=== PATIENT | female | born 1965 | race Caucasian/White ===

== ENCOUNTER 2020-01-01 08:25 | Inpatient (IN) | payer OTHER ==
[2020-01-01] VITALS (14 sets, daily range): BP systolic 80–99; BP diastolic 51–72
[~2020-01-01] VITALS: Ht 167.6 cm; Wt 90.7 kg
--- NOTE | 2020-01-01 08:25 | NUR ---
RT AT BEDSIDE FOR BIPAP SET UP.
--- NOTE | 2020-01-01 08:28 | NUR ---
SEEN AND EXAMINED BY .
[2020-01-01] MEDS ORDERED: FUROSEMIDE 40 MG/4 ML VIAL IV ONE (08:30)
--- NOTE | 2020-01-01 08:30 | NUR ---
PT IV LINE ESTABLISHED, BLOOD DRAWN AND SENT TO LAB.
[2020-01-01] MEDS ORDERED: FUROSEMIDE 40 MG/4 ML VIAL ONE (08:36)
[2020-01-01 08:38] LABS: BASOPHILS % (AUTO) 0.2 % (0.0-2.0); EOSINOPHILS % (AUTO) 0.1 % (0.0-6.0); HEMATOCRIT 35 % (33-45); HEMOGLOBIN 11.5 g/dL (11.5-14.8); LYMPHOCYTES # (AUTO) 0.7 /CMM (0.8-4.8); LYMPHOCYTES % (AUTO) 13.7 % (20.0-44.0); MEAN CORPUSCULAR HGB CONC 33 g/dl (31.0-36.0); MEAN CORPUSCULAR VOLUME 92 fL (82-100); MONOCYTES # (AUTO) 0.8 /CMM (0.1-1.30); MONOCYTES % (AUTO) 14.5 % (2.0-12.0); NEUTROPHILS # (AUTO) 3.9 /CMM (1.8-8.9); NEUTROPHILS % (AUTO) 71.5 % (43.0-81.0); PLATELET COUNT (AUTO) 156 /CMM (150-450); RED BLOOD CELL COUNT(AUTO) 3.86 MIL/uL (4.0-5.2); WHITE BLOOD COUNT (AUTO) 5.4 K/uL (4.3-11.0)
--- NOTE | 2020-01-01 08:40 | NUR ---
[facility]ED [facility] FOR [facility].
--- NOTE | 2020-01-01 08:41 | NUR ---
RT Pt was brought in by paramedics on CPAP mask in respiratory distress. Pt was placed on BiPAP with noted settings per Dr. Myrick orders. Pt is awake and alert. BiPAP is plugged into red outlet. Addendum: 01/01/20 at 0846 by BONY REDDY RT Amended: Links added.
[2020-01-01 08:47] LABS: CALCIUM, SERUM 9.5 mg/dL (8.5-10.1); CARBON DIOXIDE 25 mmol/L (21-32); CHLORIDE 98 mmol/L (98-107); CREATININE 2.8 mg/dL (0.6-1.3); GLUCOSE 196 mg/dL (74-106); POTASSIUM 5.2 mmol/L (3.5-5.1); SODIUM SERUM 132 mmol/L (136-145); UREA NITROGEN, BLOOD 55 mg/dL (7-18)
[2020-01-01 08:59] LABS: ALANINE AMINOTRANSFERASE 21 U/L (12-78); ALBUMIN 3.8 g/dL (3.4-5.0); ALKALINE PHOSPHATASE 44 U/L (46-116); ASPARTATE AMINOTRANSFERASE 32 U/L (15-37); B-TYPE NATRIURETIC PEPTIDE 13485 PG/ML (0-125); BILIRUBIN,DIRECT 0.3 mg/dL (0.0-0.2); BILIRUBIN,TOTAL 0.7 mg/dL (0.2-1.0); TOTAL PROTEIN, SERUM 6.2 g/dL (6.4-8.2)
--- NOTE | 2020-01-01 09:38 | NUR ---
[facility].
--- NOTE | 2020-01-01 09:42 | NUR ---
Javier MADDOX (Dr. Lockwood) talking to Dr. Myrick.
[2020-01-01] MEDS ORDERED: MYCO500T PO (09:48)
[2020-01-01] MEDS ORDERED: CALC0.253 PO (09:48)
[2020-01-01] MEDS ORDERED: SPIR25TA PO (09:48)
[2020-01-01] MEDS ORDERED: PRAV20TA4 PO (09:48)
[2020-01-01] MEDS ORDERED: DILT180C49 PO (09:48)
[2020-01-01] MEDS ORDERED: CEPH250C PO (09:48)
[2020-01-01] MEDS ORDERED: WARF-68 PO (09:48)
[2020-01-01] MEDS ORDERED: METO25TA20 PO (09:48)
[2020-01-01] MEDS ORDERED: CHOL100040 PO (09:48)
[2020-01-01] MEDS ORDERED: TACR0.5C PO (09:48)
[2020-01-01] MEDS ORDERED: MULT-24 PO (09:48)
[2020-01-01] MEDS ORDERED: PRED2.5T PO (09:48)
[2020-01-01] MEDS ORDERED: FURO20TA4 PO (09:48)
[2020-01-01] MEDS ORDERED: AMIO200T4 PO (09:48)
--- NOTE | 2020-01-01 10:00 | NUR ---
CALLED NURSING SUP FOR ICU BED. GAVE ICU 261.
[2020-01-01] MEDS ORDERED: WARF-58 PO (10:07)
[2020-01-01] MEDS ORDERED: WARF7.5T49 PO (10:07)
[2020-01-01] MEDS ORDERED: TACR1CAP7 PO (10:23)
--- NOTE | 2020-01-01 10:47 | NUR ---
Report given to Renetta jarrett for kayleen.
--- NOTE | 2020-01-01 12:10 | NUR ---
ICU RNOPENING NOTE RECEIVED PATIENT FROM ER, WAS BROUGHT IN VIA GURNEY. PATIENT IS ON BIPAP MACHINE, ABLE TO FOLLOW COMMANDS. A/O X4, VERBAL, ABLE TO PROVIDE HISTORY. IS AT BEDSIDE. BIPAP SETTINGS SET ORDERED BY DR LACY, PT TOLERATING WELL, SATURATING AT 100%. PT PLACED ON TELE MONITOR, A-FIB NOTED WITH HR IN THE 90S. PATIENT SKIN IS INTACT WITH MULTIPLE BRUISES NOTED. B LOWER EDEMA PRESENT. IV ACCESS ON RAC #18, INTACT, PATENT AND FLUSHED WELL. BELONGING LIST FILLED OUT AND PLACED IN THE CHART. PATIENT CHANGED INTO HOSPITAL GOWN AND PLACE IN A CLEAN BED. SAFETY MAINTAINED, CALL LIGHT WITHIN REACH, WILL CONTINUE TO MONITOR.
--- NOTE | 2020-01-01 12:24 | NUR ---
Wheeled patient via gurney accompanied by RN and emt and RT, in no distress, RN at bedside to assume care.
[2020-01-01] MEDS ORDERED: ONDANSETRON HCL/PF 4 MG/2 ML VIAL IVP PRN (12:30)
[2020-01-01] MEDS ORDERED: MAG HYDROX/AL HYDROX/SIMETH 30 ML UDC PO PRN (12:30)
[2020-01-01] MEDS ORDERED: MAGNESIUM HYDROXIDE 30 ML UDC PO PRN (12:30)
[2020-01-01] MEDS ORDERED: Z GUARD REMEDY 2 OZ OINT TP PRN (12:30)
[2020-01-01] MEDS ORDERED: methylPREDNISolone SOD SUCC 40 MG/ML VIAL IV SCH (13:00)
[2020-01-01] MEDS: CHOLECALCIFEROL 1,000 UNIT TABLET (VIT D3) PO SCH (13:00)
[2020-01-01 13:13] LABS: ABG BASE EXCESS -6.5 mmol/L; ABG OXYGEN SATURATION 97.3 % (92.0-98.5); ABG PCO2 55.3 mmHg (35.0-45.0); ABG PH 7.211 (7.350-7.450); ABG PO2 106.1 mmHg (75.0-100.0); AaDO2 406.2 mmHg; COHb 0.7 % (0.5-1.5); MetHb 0.3 % (0.0-1.5); O2Hb 96.3 % (94.0-97.0); SITE, ABG Right Radial
[2020-01-01] MEDS: HYDROCORTISONE SOD SUCCINATE 100 MG/2 ML VIAL IV SCH ×2 (13:27→17:21)
[2020-01-01] MEDS: ALBUTEROL FS 2.5 MG/0.5 ML VIAL.NEB NEB SCH ×3 (13:39→21:29)
--- NOTE | 2020-01-01 14:38 | NUR ---
WAITING ON PHARMACY TO SEND MERREM TO ADMINISTER. DUE AT 1400, CALLED PHARMACY STATED IT IS COMING UP.
[2020-01-01] MEDS: MEROPENEM 500 MG in IV NS 0.9% 50 ML IV SCH (14:51)
[2020-01-01] MEDS: IPRATROPIUM NEB FS 0.5 MG/2.5 ML AMPUL.NEB NEB SCH ×2 (16:43→21:29)
[2020-01-01 16:48] LABS: ABG OXYGEN SATURATION 98.4 % (92.0-98.5); ABG PCO2 43.5 mmHg (35.0-45.0); ABG PH 7.271 (7.350-7.450); ABG PO2 143.5 mmHg (75.0-100.0); AaDO2 308.8 mmHg; COHb 0.2 % (0.5-1.5); MetHb 0.4 % (0.0-1.5); O2Hb 97.8 % (94.0-97.0); SITE, ABG Right Radial; VENT MODE, BG Bipap 25/5 RR18 70%
[2020-01-01] MEDS ORDERED: METOPROLOL TARTRATE 25 MG TABLET PO SCH (17:00)
[2020-01-01] MEDS: MYCOPHENOLATE MOFETIL 250 MG CAPSULE PO SCH (17:21)
[2020-01-01] MEDS: AMIODARONE HCL 200 MG TABLET PO SCH (17:21)
--- NOTE | 2020-01-01 17:30 | NUR ---
RN NOTE HELD METOPROLOL PER MD ORDER DUE TO BP BEING TOO LOW.
[2020-01-01] MEDS ORDERED: TACROLIMUS ANHYDROUS 0.5 MG CAPSULE PO SCH (18:00)
[2020-01-01] MEDS ORDERED: NOREPINEPHRINE 8 MG in IV D5W 500 ML IV PRN (18:30)
--- NOTE | 2020-01-01 18:31 | NUR ---
FACING BASTER NOTE SPOKE WITH PARTS SALES MANAGER SRIDHAR, INFORMED REGARDING PATIENTS LOW BLOOD PRESSURE . WITH ORDERS FOR LEVO ON STANDBY TO KEEP MAP >65 AND TO DC METOPROLOL. NURSE AWARE.
--- NOTE | 2020-01-01 19:35 | NUR ---
RN CLOSING NOTES PATIENT IN STABLE CONDITION, NO ACUTE CHANGES TO PATIENT CONDITION DURING MY SHIFT. ALL PATIENT NEEDS MET. PATIENT REMAINS ON BIPAP WITH SETTINGS SET ORDERED BY DR LACY. ABG RESULTS HAVE SLIGHTLY IMPROVED SINCE FIRST ABG DRAW AND ADJUSTMENTS TO BIPAP. PATIENT TOLERATING BIPAP WELL, O2 SAT AT 100%. PT REMAINS A/O X4, BP IS RUNNING LOW MD AWARE, MD ORDERED A STANDING ORDER FOR NOREPI TO KEEP MAP ABOVE 60. WAS AT BED SIDE MOST OF THE DAY, PATIENT RESTING COMFORTABLY IN BED. ALL PATIENTS NEEDS MET, SAFETY MAINTAINED, ENDORSED TO PIZZA CHEF NURSE TO CONTINUE CARE.
--- NOTE | 2020-01-01 19:45 | NUR ---
ICU/MANUFACTURING APPLICATIONS ENGINEER RECEIVED REPORT FROM DAY NURSE. SEE NURSING FLOWSHEET FOR ASSESSMENT. THERE ARE SOME SKIN ISSUES WHICH ARE ADDRESSED ON THE FLOWSHEET ALONG WITH THE INTERVENTIONS. PT HAS BIPAP ON WITH SATURATION AT 100%. NO ACUTE DISTRESS SEEN AT THIS TIME, PT WAS TURNED AND REPOSITIONED FOR COMFORT AND CARE WILL CONTINUE TO MONITOR THIS PT.
--- NOTE | 2020-01-01 20:10 | NUR ---
ICU/CLIENT DEVELOPMENT CONSULTANT RT HERE TO DO ABG, AWAIT THE RESULTS.
[2020-01-01 20:38] LABS: ABG BASE EXCESS -6.3 mmol/L; ABG OXYGEN SATURATION 98.2 % (92.0-98.5); ABG PCO2 41.3 mmHg (35.0-45.0); ABG PH 7.298 (7.350-7.450); ABG PO2 132.3 mmHg (75.0-100.0); AaDO2 322.4 mmHg; COHb 0.2 % (0.5-1.5); MetHb 0.4 % (0.0-1.5); O2Hb 97.6 % (94.0-97.0); SITE, ABG Right Brachial
--- NOTE | 2020-01-01 21:05 | NUR ---
ICU/PLASTICS WORKER RESULTS OF ABG WERE CALLED TO DR LACY, HE SAID NO CHANGE. PT IS CURRENTLY ON BIPAP WITH SETTINGS OF 25/5, 18, 70%.
--- NOTE | 2020-01-01 21:50 | NUR ---
RT NOTE PT RECEIVED ON BIPAP WITH CURRENT SETTINGS OF 25/5, 18, 70%. PT AWAKE AND RESPONDS TO COMMANDS. ABG DRAWN AND RESULTS REPORTED TO FELIPE CARDONA. TX GIVEN, NO ADVERSE REACTIONS NOTED. MASK SECURED WITH MEPILEX. NO DISTRESS NOTED AT THIS TIME. WILL MONITOR T/O SHIFT. Addendum: 01/01/20 at 2152 by VIKKI ROLAND RT Amended: Links added.
[2020-01-01] MEDS: ATORVASTATIN 10 MG TABLET PO SCH (22:00)
--- NOTE | 2020-01-01 22:10 | NUR ---
ICU/MANAGER ACTION PT VOIDED X 1 VERY LITTLE URINE, PT HAS ORDER FOR DUNBAR, THIS WAS OFFERED AGAIN TO PT. PT REFUSED TILL COMES IN.
[2020-01-02] VITALS (24 sets, daily range): BP systolic 88–128; BP diastolic 41–93
--- NOTE | 2020-01-02 00:20 | NUR ---
ICU/LODGE SALES ASSOCIATE PT VOIDED X 1 VERY LITTLE URINE AGAIN FOR THE SECOND TIME, PT HAS ORDER FOR DUNBAR, THIS WAS OFFERED AGAIN TO PT. PT REFUSED TILL COMES IN. EXPLAINED TO PT THAT IF SHE IS IN PAIN THEN DUNBAR SHOULD BE DONE HOWEVER PT REFUSED.
[2020-01-02] MEDS: MEROPENEM 500 MG in IV NS 0.9% 50 ML IV SCH ×2 (01:50→14:33)
[2020-01-02] MEDS: IV NS 0.9% 250 ML IV PRN (02:43)
--- NOTE | 2020-01-02 03:15 | NUR ---
ICU/SCIENTIFIC DIRECTOR PT VOIDED X 1 VERY LITTLE URINE AGAIN FOR THE THIRD TIME, PT HAS ORDER FOR DUNBAR, THIS WAS OFFERED AGAIN TO PT. PT REFUSED TILL COMES IN. PT HASN'T HAD A BM FOR 4 DAYS, CALL PLACED TO GET A SUPPOSITORY OR EDEMA. WAITING FOR MD TO CALL BACK.
--- NOTE | 2020-01-02 04:30 | NUR ---
ICU/MANAGER TRADE 0345-ORDER OBTAINED FOR FLEETS AND LAXATIVE SUPPOSITORY 0430-BLADDER SCAN DONE SHOWED THAT PT HAS 550 ML OF URINE, CALL PLACED TO MD FOR ORDER FOR DUNBAR.
[2020-01-02 04:44] LABS: BASOPHILS % (AUTO) 0.2 % (0.0-2.0); HEMATOCRIT 30 % (33-45); LYMPHOCYTES # (AUTO) 0.4 /CMM (0.8-4.8); LYMPHOCYTES % (AUTO) 21.2 % (20.0-44.0); MEAN CORPUSCULAR HGB CONC 34 g/dl (31.0-36.0); MEAN CORPUSCULAR VOLUME 89 fL (82-100); MONOCYTES # (AUTO) 0.2 /CMM (0.1-1.30); MONOCYTES % (AUTO) 11.9 % (2.0-12.0); NEUTROPHILS # (AUTO) 1.2 /CMM (1.8-8.9); NEUTROPHILS % (AUTO) 66.7 % (43.0-81.0); PLATELET COUNT (AUTO) 95 /CMM (150-450); RED BLOOD CELL COUNT(AUTO) 3.31 MIL/uL (4.0-5.2)
[2020-01-02 04:55] LABS: CALCIUM, SERUM 9.1 mg/dL (8.5-10.1); CREATININE 3.5 mg/dL (0.6-1.3); MAGNESIUM 1.7 mg/dL (1.8-2.4); PHOSPHORUS 4.3 mg/dL (2.5-4.9); POTASSIUM 5.6 mmol/L (3.5-5.1)
[2020-01-02 05:25] LABS: THYROID STIMULATING HORMONE 2.049 uIU/mL (0.358-3.74); WHITE BLOOD COUNT (AUTO) 1.8 K/uL (4.3-11.0)
[2020-01-02] MEDS ORDERED: NA PHOS,M-B/NA PHOS,DI-BA 1 EA ENEMA RC PRN (05:30)
[2020-01-02] MEDS ORDERED: BISACODYL SUPP (10 MG) 10 MG/SUPP.RECT SUPP.RECT RC PRN (05:30)
--- NOTE | 2020-01-02 06:19 | NUR ---
ICU/MUSIC INDUSTRY INTERN STILL WAITING FOR MD TO CALL BACK FOR DUNBAR ORDER AND NOTIFY ABOUT WBC 1.8
[2020-01-02 06:33] LABS: LYMPHOCYTES % (MANUAL) 20 % (16-48); MONOCYTES % (MANUAL) 8 % (0-11.0); NEUTROPHILS % (MANUAL) 72 (42-76)
--- NOTE | 2020-01-02 07:04 | NUR ---
ICU/PASTRY SOUS CHEF DUNBAR CATH PLACED AND FLEETS ENEMA
--- NOTE | 2020-01-02 07:10 | NUR ---
RN NOTES RECEIVED REPORT FROM ON BED ,A/Ox4, ON BIPAP, TOLERATING CURRENT BIPAP SETTING WELL, NO DISTRESS NOTED, VSS STABLE, ON TELE A.FIB , HR IN 80'S, DUNBAR IS DRINING TO GRAVITY,PT IS NPO AT THIS TIME, SR UP x3, CALL LIGHT WITHIN EASY REACH , BED LOCKED AND IN LOWEST POSITION, PT WAS TURNED AND REPOSITIONED FOR COMFORT AND CARE WILL CONTINUE TO MONITOR CLOSELY,
[2020-01-02] MEDS: IPRATROPIUM NEB FS 0.5 MG/2.5 ML AMPUL.NEB NEB SCH ×4 (07:35→20:54)
[2020-01-02] MEDS: ALBUTEROL FS 2.5 MG/0.5 ML VIAL.NEB NEB SCH ×4 (07:35→20:55)
--- NOTE | 2020-01-02 07:39 | NUR ---
RT NOTE PT REC'D ON BIPAP WITH CURRENT SETTINGS OF 25/5, 18, 70%. PT AWAKE AND RESPONDS TO COMMANDS. ABG DRAWN AND RESULTS REPORTED TO FELIPE CARDONA. TX GIVEN, NO ADVERSE REACTIONS NOTED. MASK SECURED WITH MEPILEX. NO DISTRESS NOTED AT THIS TIME. WILL MONITOR T/O SHIFT. Addendum: 01/02/20 at 0745 by ROSI GUTHRIE RT Amended: Links added.
[2020-01-02 08:22] LABS: ABG BASE EXCESS -5.5 mmol/L; ABG OXYGEN SATURATION 96.7 % (92.0-98.5); ABG PCO2 37.3 mmHg (35.0-45.0); ABG PO2 96.2 mmHg (75.0-100.0); AaDO2 362.8 mmHg; MetHb 0.4 % (0.0-1.5); O2Hb 96.3 % (94.0-97.0); SITE, ABG Right Radial; VENT MODE, BG st 25/5 18 70%
[2020-01-02] MEDS: HYDROCORTISONE SOD SUCCINATE 100 MG/2 ML VIAL IV SCH ×3 (08:33→16:20)
[2020-01-02] MEDS: MYCOPHENOLATE MOFETIL 250 MG CAPSULE PO SCH ×2 (08:34→16:20)
[2020-01-02] MEDS: MULTIVITAMINS,THERAGRAN 1 UDTAB TABLET PO SCH (08:34)
[2020-01-02] MEDS: TACROLIMUS ANHYDROUS 0.5 MG CAPSULE PO SCH ×2 (08:34→20:29)
[2020-01-02] MEDS: CHOLECALCIFEROL 1,000 UNIT TABLET (VIT D3) PO SCH (08:34)
[2020-01-02] MEDS: AMIODARONE HCL 200 MG TABLET PO SCH ×2 (08:35→16:18)
[2020-01-02] MEDS: DILTIAZEM HCL CD 180 MG PO SCH (08:36)
[2020-01-02] MEDS ORDERED: PRAVASTATIN SODIUM 20 MG TABLET PO SCH (09:00)
[2020-01-02] MEDS ORDERED: BUMETANIDE INJ 2 MG in IV NS 0.9% 32 ML IV ONE (09:30)
--- NOTE | 2020-01-02 10:38 | NUR ---
RN NOTES DR SYKES NOTIFIED REGARDING INR AND MAGNESIUM LEVEL THIS AM
--- NOTE | 2020-01-02 11:00 | NUR ---
RN NOTES BLADDER SCAN SHOWED PT HAS 300CC TO 500CC URINE , 40CC URINE OUTPUT NOTED FROM DUNBAR INSERTION . MEI NOTIFED , ORDER RECEIVED TO CHANGE DUNBAR CATHETER. CONTINUE TO MONITOR .
--- NOTE | 2020-01-02 11:45 | NUR ---
RN NOTES DUNBAR CATHETER CHANGED PER DR SYKES ORDER .
[2020-01-02] MEDS: SULFAMETHOXAZOLE/TRIMETHOPRIM 15 ML in IV D5W 250 ML IV SCH (12:34)
[2020-01-02] MEDS ORDERED: WARFARIN SODIUM 5 MG TABLET PO SCH (17:00)
--- NOTE | 2020-01-02 18:00 | NUR ---
RN NOTES PT REFUSED TO TAKE HER PROGRAF AT THIS TIME WANTS TO TAKE IT 12 HOURS FROM THE AM DOSE, WILL ENDORSE TO SHOVEL MECHANIC NURSE FOR CONTINUITY OF CARE .
--- NOTE | 2020-01-02 18:42 | NUR ---
RN NOTES PT STABLE , RESTING WELL, NO DISTRESS NOTED , BETTINA DRINING TO GRAVITY, NO SIGNIFICANT CHANGES NOTED ON THIS SHIFT, WILL ENDORSE TO BOLT CUTTER NURSE FOR CONTINUITY OF CARE.
--- NOTE | 2020-01-02 19:30 | NUR ---
RN NOTES RECEIVED PT WITH BIPAP 25/5 RATE 18 FIO2 70% TOLERATED WELL SATURATION 99%. AOX4 AFIB ON TELE MONITOR. AFEBRILE. VSS. DENIES PAIN OR DISCOMFORT. IV SITE ON RAC G 18 INTACT AND PATENT. ENCOURAGED TO REPOSITION WHILE ON BED. KEPT PT CLEAN AND DRY. CALL LIGHT KEPT WITHIN EASY REACH REMINDED TO USED FOR ASSISTANCE. WILL CONT. TO MONITOR.
[2020-01-02] MEDS: ATORVASTATIN 10 MG TABLET PO SCH (21:03)
[2020-01-03] VITALS (26 sets, daily range): BP systolic 73–115; BP diastolic 33–74
[2020-01-03] MEDS: SULFAMETHOXAZOLE/TRIMETHOPRIM 15 ML in IV D5W 250 ML IV SCH ×2 (00:18→08:00)
--- NOTE | 2020-01-03 00:30 | NUR ---
RN NOTES NOTED THAT IV BACTRIM WAS DUE AT 0000, CALLED DR. JACKSON THAT I SPOKE TO AT BEDSIDE AND HIS CONCERN REGARDING TAKING BACTRIM IV EXPLAINED THAT PT OWN REGIONAL COORDINATOR TOLD HIM SO, AND THAT THE PATIENT SHOULDN'T TAKE THIS MEDS. PER WOOD CUTTER MD ITS OK TO GIVE THE MEDICINE AND THEIR DOCTOR NEEDS TO SPEAK WITH OUR NEPHROLOGY/PMD. MEDICINE WILL ADMINISTERED PER MD.
[2020-01-03] MEDS: MEROPENEM 500 MG in IV NS 0.9% 50 ML IV SCH ×2 (02:09→13:42)
--- NOTE | 2020-01-03 05:47 | NUR ---
RN NOTES CALLED DR. JACKSON REGARDING CRITICAL OF INR 8.36 WITH ORDER TO HOLD COUMADIN TODAY.
--- NOTE | 2020-01-03 07:05 | NUR ---
RN NOTES PATIENT REMAINED COMPLIANT WITH CARE. NO CHANGE OF MENTAL STATUS. TOLERATED BIPAP ORDERED SATURATION >95%. AFEBRILE. VSS. DUNBAR CATH DRAINED WITH YELLOW COLOR URINE. NO SIGNIFICANT CHANGES THROUGHOUT THE SHIFT, KEPT PT CLEAN AND DRY. ALL CONCERNED RELAY TO MD. WILL CONTINUE POC.
[2020-01-03 07:34] LABS: BASOPHILS % (AUTO) 0.2 % (0.0-2.0); HEMATOCRIT 30 % (33-45); HEMOGLOBIN 9.8 g/dL (11.5-14.8); LYMPHOCYTES # (AUTO) 0.3 /CMM (0.8-4.8); LYMPHOCYTES % (AUTO) 10.6 % (20.0-44.0); MEAN CORPUSCULAR HGB CONC 33 g/dl (31.0-36.0); MEAN CORPUSCULAR VOLUME 89 fL (82-100); MONOCYTES # (AUTO) 0.2 /CMM (0.1-1.30); MONOCYTES % (AUTO) 8.2 % (2.0-12.0); NEUTROPHILS # (AUTO) 2.1 /CMM (1.8-8.9); PLATELET COUNT (AUTO) 115 /CMM (150-450); RED BLOOD CELL COUNT(AUTO) 3.32 MIL/uL (4.0-5.2); WHITE BLOOD COUNT (AUTO) 2.5 K/uL (4.3-11.0)
[2020-01-03 07:43] LABS: BILIRUBIN,TOTAL 0.4 mg/dL (0.2-1.0); CALCIUM, SERUM 8.5 mg/dL (8.5-10.1); CREATININE 4.1 mg/dL (0.6-1.3); POTASSIUM 5.1 mmol/L (3.5-5.1); TOTAL PROTEIN, SERUM 5.1 g/dL (6.4-8.2)
[2020-01-03] MEDS: IPRATROPIUM NEB FS 0.5 MG/2.5 ML AMPUL.NEB NEB SCH ×4 (07:45→19:56)
[2020-01-03] MEDS: ALBUTEROL FS 2.5 MG/0.5 ML VIAL.NEB NEB SCH ×4 (07:45→19:56)
--- NOTE | 2020-01-03 08:00 | NUR ---
received pt from restaurant shift leader, a/o x4, A fib controlled, on bipap, sat well, NPO, f/c low output MD is aware, Bactrim is not given pt refused stating that it is nephrotoxic, SURVEYOR INSTRUMENT ASSISTANT Ondina is aware, v/s stable, no pain, pt turns and repositions by herself, at the bedside.
[2020-01-03] MEDS: CHOLECALCIFEROL 1,000 UNIT TABLET (VIT D3) PO SCH (08:40)
[2020-01-03 08:41] LABS: ABG OXYGEN SATURATION 95.7 % (92.0-98.5); ABG PCO2 29.9 mmHg (35.0-45.0); ABG PH 7.395 (7.350-7.450); ABG PO2 81.8 mmHg (75.0-100.0); AaDO2 241.1 mmHg; COHb 0.1 % (0.5-1.5); MetHb 0.2 % (0.0-1.5); O2Hb 95.4 % (94.0-97.0); SITE, ABG Right Brachial; VENT MODE, BG ST 25/5 RR18 50%
[2020-01-03] MEDS: TACROLIMUS ANHYDROUS 0.5 MG CAPSULE PO SCH ×2 (08:41→21:00)
[2020-01-03] MEDS: MYCOPHENOLATE MOFETIL 250 MG CAPSULE PO SCH ×2 (08:41→16:11)
[2020-01-03] MEDS: AMIODARONE HCL 200 MG TABLET PO SCH (08:41)
[2020-01-03] MEDS: HYDROCORTISONE SOD SUCCINATE 100 MG/2 ML VIAL IV SCH ×3 (08:42→16:10)
[2020-01-03] MEDS: DILTIAZEM HCL CD 180 MG PO SCH (08:42)
[2020-01-03] MEDS: MULTIVITAMINS,THERAGRAN 1 UDTAB TABLET PO SCH (08:42)
--- NOTE | 2020-01-03 09:21 | NUR ---
pt is on high flow now 50% on 50L per Dr Ramos.
[2020-01-03] MEDS ORDERED: BUMETANIDE INJ 2 MG in IV NS 0.9% 32 ML IV ONE (10:30)
[2020-01-03] MEDS: METOLAZONE 2.5 MG TABLET PO SCH (10:48)
[2020-01-03 13:34] LABS: ABG BASE EXCESS -6.6 mmol/L; ABG OXYGEN SATURATION 92.3 % (92.0-98.5); ABG PCO2 26.7 mmHg (35.0-45.0); ABG PH 7.415 (7.350-7.450); ABG PO2 61.7 mmHg (75.0-100.0); AaDO2 264.8 mmHg; COHb 0.1 % (0.5-1.5); MetHb 0.3 % (0.0-1.5); O2Hb 91.9 % (94.0-97.0); VENT MODE, BG HIGH FLOW
[2020-01-03] MEDS: OSELTAMIVIR PHOSPHATE 75 MG CAPSULE PO SCH (16:08)
--- NOTE | 2020-01-03 16:55 | NUR ---
pt is resting in the bed, a/o x4, A fib controlled, on high flow at 60L 02 and 50% fio2, sat well, v/s stable, no pain, pt cleaned and changed.
[2020-01-03 17:35] LABS: APPEARANCE,URINE CLEAR (CLEAR); BILIRUBIN,URINE NEGATIVE (NEGATIVE); BLOOD, URINE MODERATE Ery/uL (NEGATIVE); COLOR,URINE YELLOW (YELLOW); KETONES,URINE NEGATIVE (NEGATIVE); LEUKOCYTE ESTERASE ,URINE NEGATIVE (NEGATIVE); NITRITE, URINE NEGATIVE (NEGATIVE); PH,URINE 5.5 (5.0-8.0); PROTEIN,URINE NEGATIVE (NEGATIVE); UGLUCOSE NEGATIVE (NEGATIVE); UROBILINOGEN,URINE 0.2 EU/dL (0.2)
[2020-01-03 17:42] LABS: BACTERIA,URINE Few /HPF (None Seen); SQUAMOUS EPITHELIAL CELL,UR Few /HPF (None Seen); WBC,URINE 0-2 /HPF (0-3)
[2020-01-03 17:43] LABS: HYALINE CASTS, URINE Few /LPF (None Seen)
--- NOTE | 2020-01-03 20:00 | NUR ---
Received patient awake alert and oriented x4.VSS.Afib 105-109.On Hi Flow 60% well tolerated. No respiratory distress noted.IVF with NS at TKO infusing via JANE Midline.FC to gravity with minimal urine output.Plan of care explained to patient verbalized understanding.All questions answered to patient satisfaction.Will continue to monitor.Safety precaution maintained.Call light within easy reach.
[2020-01-03] MEDS: LINEZOLID RTU BAG 600 MG in PREMIX 1 EA IV SCH (21:00)
[2020-01-03] MEDS: ATORVASTATIN 10 MG TABLET PO SCH (21:01)
[2020-01-04] VITALS (26 sets, daily range): BP systolic 52–123; BP diastolic 23–85
[2020-01-04] MEDS: MEROPENEM 500 MG in IV NS 0.9% 50 ML IV SCH ×2 (03:29→13:34)
[2020-01-04] MEDS: IV NS 0.9% 250 ML IV PRN (04:08)
[2020-01-04 04:59] LABS: HEMATOCRIT 29 % (33-45); HEMOGLOBIN 9.7 g/dL (11.5-14.8); LYMPHOCYTES # (AUTO) 0.2 /CMM (0.8-4.8); LYMPHOCYTES % (AUTO) 4.7 % (20.0-44.0); MEAN CORPUSCULAR HGB CONC 34 g/dl (31.0-36.0); MEAN CORPUSCULAR VOLUME 89 fL (82-100); MONOCYTES # (AUTO) 0.2 /CMM (0.1-1.30); MONOCYTES % (AUTO) 5.3 % (2.0-12.0); NEUTROPHILS # (AUTO) 3.6 /CMM (1.8-8.9); PLATELET COUNT (AUTO) 127 /CMM (150-450); RED BLOOD CELL COUNT(AUTO) 3.27 MIL/uL (4.0-5.2)
[2020-01-04 05:20] LABS: CALCIUM, SERUM 8.6 mg/dL (8.5-10.1); CREATININE 4.5 mg/dL (0.6-1.3); POTASSIUM 4.5 mmol/L (3.5-5.1)
--- NOTE | 2020-01-04 05:35 | NUR ---
Patient resting.No acute distress noted.VS remains stable.Afib low 100's.Tolerating Hiflow at 60%. good urine output.Bed bath rendered and complete linens changed.Turned and repositioned.All due medications administered.Assisted with needs.
[2020-01-04] MEDS: ALBUTEROL FS 2.5 MG/0.5 ML VIAL.NEB NEB SCH ×4 (07:52→19:49)
[2020-01-04] MEDS: IPRATROPIUM NEB FS 0.5 MG/2.5 ML AMPUL.NEB NEB SCH ×4 (07:52→19:49)
[2020-01-04] MEDS ORDERED: BUMETANIDE INJ 2 MG in IV NS 0.9% 32 ML IV ONE (08:00)
--- NOTE | 2020-01-04 08:52 | NUR ---
received pt from table games shift manager, a/o x4, A fib controlled, on high flow at 60% fi02 sat well, tolerated diet, OK urine output, v/s stable, no pain, at the bedside.
[2020-01-04] MEDS: DILTIAZEM HCL CD 180 MG PO SCH (09:00)
[2020-01-04] MEDS: METOLAZONE 2.5 MG TABLET PO SCH (09:17)
[2020-01-04] MEDS: CHOLECALCIFEROL 1,000 UNIT TABLET (VIT D3) PO SCH (09:18)
[2020-01-04] MEDS: LINEZOLID RTU BAG 600 MG in PREMIX 1 EA IV SCH ×2 (09:18→21:01)
[2020-01-04] MEDS: MYCOPHENOLATE MOFETIL 250 MG CAPSULE PO SCH ×2 (09:18→16:48)
[2020-01-04] MEDS: HYDROCORTISONE SOD SUCCINATE 100 MG/2 ML VIAL IV SCH ×3 (09:18→16:48)
[2020-01-04] MEDS: OSELTAMIVIR PHOSPHATE 75 MG CAPSULE PO SCH (09:18)
[2020-01-04] MEDS: MULTIVITAMINS,THERAGRAN 1 UDTAB TABLET PO SCH (09:18)
[2020-01-04] MEDS: TACROLIMUS ANHYDROUS 0.5 MG CAPSULE PO SCH ×2 (09:44→21:01)
--- NOTE | 2020-01-04 10:47 | NUR ---
INR 9.9, HITESH Nj notified.
[2020-01-04 11:04] LABS: ABG BASE EXCESS -6.2 mmol/L; ABG OXYGEN SATURATION 96.5 % (92.0-98.5); ABG PCO2 28.7 mmHg (35.0-45.0); ABG PH 7.401 (7.350-7.450); ABG PO2 92.4 mmHg (75.0-100.0); AaDO2 303.8 mmHg; COHb 0.3 % (0.5-1.5); MetHb 0.3 % (0.0-1.5); O2Hb 95.9 % (94.0-97.0); SITE, ABG Right Brachial; VENT MODE, BG HIHG FLOW
--- NOTE | 2020-01-04 16:14 | NUR ---
pt is resting in the bed, a/o x4, A fib controlled, on high flow at 60% fi02, tolerated diet, good urine output, v/s stable, no pain, pt cleaned, changed and repositioned.
--- NOTE | 2020-01-04 20:00 | NUR ---
Received patient awake alert and oriented x4.HOB elevated.VSS.Afib 105-112.Normotensive. Maintained on Hi flow 60% well tolerated.No acute distress noted.IVF NS at TKO infusing to JANE ML site intact.FC to gravity with clear yellow urine.Care explained.Verbalized understanding. Turned and repositioned.Safety precaution observed.Call light at bedside.Continue monitoring.
[2020-01-04] MEDS: ATORVASTATIN 10 MG TABLET PO SCH (21:01)
[2020-01-05] VITALS (18 sets, daily range): BP systolic 99–145; BP diastolic 53–98
[2020-01-05] MEDS: MEROPENEM 500 MG in IV NS 0.9% 50 ML IV SCH ×2 (02:01→13:32)
[2020-01-05] MEDS: IV NS 0.9% 250 ML IV PRN (04:18)
[2020-01-05 05:14] LABS: EOSINOPHILS % (AUTO) 0.1 % (0.0-6.0); HEMATOCRIT 32 % (33-45); HEMOGLOBIN 10.4 g/dL (11.5-14.8); LYMPHOCYTES # (AUTO) 0.2 /CMM (0.8-4.8); LYMPHOCYTES % (AUTO) 5.7 % (20.0-44.0); MEAN CORPUSCULAR HGB CONC 33 g/dl (31.0-36.0); MEAN CORPUSCULAR VOLUME 89 fL (82-100); MONOCYTES # (AUTO) 0.2 /CMM (0.1-1.30); MONOCYTES % (AUTO) 5.8 % (2.0-12.0); NEUTROPHILS # (AUTO) 3.2 /CMM (1.8-8.9); NEUTROPHILS % (AUTO) 88.4 % (43.0-81.0); PLATELET COUNT (AUTO) 133 /CMM (150-450); RED BLOOD CELL COUNT(AUTO) 3.57 MIL/uL (4.0-5.2); WHITE BLOOD COUNT (AUTO) 3.6 K/uL (4.3-11.0)
--- NOTE | 2020-01-05 05:20 | NUR ---
Patient resting.VSS.Afib controlled.Denies pain or sob.Tolerating O2 Hi flow @ 60%. AM care done.Encouraged to turned and patient repositioned self in bed to comfort. Good urine output.No significant change noted during the shift.All due medications administered.
[2020-01-05 05:34] LABS: CALCIUM, SERUM 8.9 mg/dL (8.5-10.1); CREATININE 4.2 mg/dL (0.6-1.3); POTASSIUM 4.3 mmol/L (3.5-5.1)
--- NOTE | 2020-01-05 07:30 | NUR ---
RN OPENING NOTES RECEIVED PATIENT RESTING IN BED. PT AWAKENS EASILY, A/O X4, ON HIGH FLOW OXYGEN 60% AND 50L ORDERED, TOLERATING WELL SATURATING WELL. VITAL SIGNS ARE STABLE AT THIS TIME. PATIENT ON TELE MONITOR, A FIB WITH HR IN THE 100S. NO ACUTE DISTRESS NOTED. PATIENT IS CLEAN AND DRY. NO SKIN BREAKDOWN NOTED. PATIENT HAS A JANE MIDLINE, INTACT, FLUSHED WELL, NO S.S OF INFECTION NOTED. PT ALSO HAS A DUNBAR CATHETER IN PLACE, INTACT AND DRAINING URINE. PATIENT IS WAITING TO BE TRANSFERRED TO [facility], WAITING FOR BED AND ORDER FROM MD. PATIENT SAFETY MAINTAINED, CALL LIGHT WITHIN REACH, WILL CONTINUE TO MONITOR CLOSELY.
[2020-01-05] MEDS: ALBUTEROL FS 2.5 MG/0.5 ML VIAL.NEB NEB SCH ×3 (08:20→15:12)
[2020-01-05] MEDS: IPRATROPIUM NEB FS 0.5 MG/2.5 ML AMPUL.NEB NEB SCH ×3 (08:20→15:12)
[2020-01-05] MEDS ORDERED: BUMETANIDE INJ 2 MG in IV NS 0.9% 32 ML IV ONE (08:30)
[2020-01-05] MEDS: METOLAZONE 2.5 MG TABLET PO SCH (08:50)
[2020-01-05] MEDS: MYCOPHENOLATE MOFETIL 250 MG CAPSULE PO SCH ×2 (08:50→17:04)
[2020-01-05] MEDS: CHOLECALCIFEROL 1,000 UNIT TABLET (VIT D3) PO SCH (08:50)
--- NOTE | 2020-01-05 08:50 | NUR ---
RN NOTE PROGRAF NOT AVAILABLE IN THE [facility]. CALLED PHARMACY, WAITING ON THEM TO RESTOCK TO ADMINISTER PROGRAF DUE AT 0900.
[2020-01-05] MEDS: MULTIVITAMINS,THERAGRAN 1 UDTAB TABLET PO SCH (08:51)
[2020-01-05] MEDS: DILTIAZEM HCL CD 180 MG PO SCH (08:51)
[2020-01-05] MEDS: OSELTAMIVIR PHOSPHATE 75 MG CAPSULE PO SCH (08:51)
[2020-01-05] MEDS: HYDROCORTISONE SOD SUCCINATE 100 MG/2 ML VIAL IV SCH (08:52)
[2020-01-05] MEDS: LINEZOLID RTU BAG 600 MG in PREMIX 1 EA IV SCH (08:52)
[2020-01-05 09:49] LABS: ABG BASE EXCESS -5.2 mmol/L; ABG OXYGEN SATURATION 95.1 % (92.0-98.5); ABG PCO2 36.8 mmHg (35.0-45.0); ABG PO2 80.6 mmHg (75.0-100.0); AaDO2 198.4 mmHg; COHb 0.1 % (0.5-1.5); MetHb 0.3 % (0.0-1.5); O2Hb 94.7 % (94.0-97.0); SITE, ABG Right Brachial; VENT MODE, BG HIGH FLOW NC 45%
[2020-01-05] MEDS ORDERED: TACROLIMUS ANHYDROUS 0.5 MG CAPSULE PO SCH (10:00)
--- NOTE | 2020-01-05 10:01 | NUR ---
RN NOTE PROGRAF IS NOT GIVEN ON TIME BECAUSE THE MEDICATION IS NOT AVAILABLE. CALLED PHARMACY FOR THE SECOND TIME LETTING THEM KNOW, WILL TRY TO BRING IT UP [facility]. WILL ADMINISTER THE MEDICATION SOON IT IS AVAILABLE.
[2020-01-05] MEDS ORDERED: MERO500P IV (11:41)
[2020-01-05] MEDS ORDERED: LINE600I9 IV (11:41)
[2020-01-05] MEDS ORDERED: METO2.5T7 PO (11:41)
[2020-01-05] MEDS ORDERED: Hydrocortisone Sod Succinate IV (11:41)
[2020-01-05] MEDS ORDERED: OSEL75CA PO (11:41)
[2020-01-05] MEDS ORDERED: IPRA0.2S9 NEB (11:41)
--- NOTE | 2020-01-05 13:39 | NUR ---
[facility] CALLED AND FAXED [facility]. [facility] FAX NUMBER IS [phone]. [facility] FAX RECEIVED AND PLACED IN THE PATIENTS CHART.
[2020-01-05] MEDS ORDERED: HYDROCORTISONE SOD SUCCINATE 100 MG/2 ML VIAL IV SCH (17:00)
--- NOTE | 2020-01-05 17:00 | NUR ---
RN NOTE CALLED [facility] TO GIVE REPORT TO THE NURSE WHO WILL BE TAKING CARE OF JOE BUSBY. CALLED AND GAVE REPORT TO FELIPE HODGE. PT WILL BE TRANSFERRED TO [facility], ROOM 5116-B. PATIENT IN STABLE CONDITION, VITAL SIGNS ARE STABLE, CLEARED BY PULMONARY TO TRANSFER VIA AMBULANCE.
--- NOTE | 2020-01-05 18:32 | NUR ---
RN CLOSING NOTES PATIENT IS BEING TRANSFERRED TO [facility]. PICKED UP BY [facility], IN STABLE CONDITION, NO ACUTE DISTRESS AT THE MOMENT. REPORT GIVEN TO THE EMT, ALL DISCHARGE PAPERWORK PROVIDED TO THE PATIENT AND SIGNED BY THE PATIENT. EDUCATION PROVIDED, ALL QUESTIONS ANSWERED, BELONGING LIST SIGNED AND PLACED IN THE CHART. NO PICTURES NECESSARY, PT SKIN IS INTACT. SINCE PT IS BEING TRANSFERRED TO AN ACUTE HOSPITAL, LEFT THE MIDLINE AND THE DUNBAR IN PLACE PER PT REQUEST. NURSE BONILLA AT [facility] IS AWARE. PT IS ON 6L OXYGEN VIA NASAL CANULA, TOLERATING WELL SATURATING WELL. PATIENT SAFETY MAINTAINED, ALL PATIENT NEEDS WERE MET. PT WAS HIGHLY SATISFIED WITH THE CARE PROVIDED AND IS VERY THANKFUL TO THE DRS. WHO TOOK CARE OF HER.
[2024-06-21] MEDS ORDERED: SULFAMETHOXAZOLE/TRIMETHOPRIM 15 ML in IV D5W 250 ML IV SCH (10:22)
== END 2020-01-05 18:35 | disposition short-term general hospital (02) | DRG 291 ==
LOC: ER 08:30 → ICU 10:58
PROVIDERS: ADMIT Nurse Practitioner Acute Care; ATTEND Nurse Practitioner Acute Care
PROC: 5A09457 Assistance with Respiratory Ventilation, 24-96 Consecutive Hours, Continuous Positive Airway Pressure (ICD-10-PCS; principal; 2020-01-01)
PROC: 05H933Z Insertion of Infusion Device into Right Brachial Vein, Percutaneous Approach (ICD-10-PCS; 2020-01-03)
DX: I13.0 Hypertensive heart and chronic kidney disease with heart failure and stage 1 through stage 4 chronic kidney disease, or unspecified chronic kidney disease (principal); J96.01 Acute respiratory failure with hypoxia; N17.0 Acute kidney failure with tubular necrosis; I50.33 Acute on chronic diastolic (congestive) heart failure; J18.9 Pneumonia, unspecified organism; J44.1 Chronic obstructive pulmonary disease with (acute) exacerbation; E87.1 Hypo-osmolality and hyponatremia; N39.0 Urinary tract infection, site not specified; R18.8 Other ascites; I48.92 Unspecified atrial flutter; D68.61 Antiphospholipid syndrome; J90 Pleural effusion, not elsewhere classified; T86.12 Kidney transplant failure; I48.91 Unspecified atrial fibrillation; Z98.84 Bariatric surgery status; Z95.2 Presence of prosthetic heart valve; Z86.79 Personal history of other diseases of the circulatory system; Z86.73 Personal history of transient ischemic attack (TIA), and cerebral infarction without residual deficits; Z80.3 Family history of malignant neoplasm of breast; Z79.01 Long term (current) use of anticoagulants; Y95 Nosocomial condition; M32.9 Systemic lupus erythematosus, unspecified; E87.5 Hyperkalemia; D69.6 Thrombocytopenia, unspecified; E78.5 Hyperlipidemia, unspecified; K74.60 Unspecified cirrhosis of liver; I70.0 Atherosclerosis of aorta; D89.9 Disorder involving the immune mechanism, unspecified; N18.9 Chronic kidney disease, unspecified; Y83.0 Surgical operation with transplant of whole organ as the cause of abnormal reaction of the patient, or of later complication, without mention of misadventure at the time of the procedure
CPT/HCPCS: 36410; 36415; 36600; 71045-TC; 76770-TC; 80048-TC; 80053-TC; 80061-TC; 80076-TC; 80197; 81000-TC; 82803-TC; 82962-TC; 83605-TC; 83735-TC; 83880; 84100-TC; 84443-TC; 84484-TC; 85025-TC; 85610-TC; 85730-TC; 87040-TC; 87081-TC; 87086-TC; 93307-TC; 94760-TC; 94799-TC; 97116-TC; 97530-TC; 99082-TC; A4216; G0378; J1720; J1940; J2020; J2185; J3490; J7050; J7060; J7507; J7517